=== PATIENT | female | born 1960 | race Caucasian/White ===

== ENCOUNTER 2017-12-29 23:12 | Emergency (ER) | payer OTHER ==
[~2017-12-29] VITALS: Ht 149.9 cm; Wt 65.3 kg
[~2017-12-29 23:12] MED LIST: METOPROLOL
[2017-12-29] MEDS ORDERED: NIFEdipine 10 MG CAP ONE (23:34)
[2017-12-29] MEDS ORDERED: NIFEdipine 10 MG CAP PO ONE (23:45)
[2017-12-30 00:11] LABS: Urine Bacteria NONE SEEN /hpf (None Seen); Urine Blood 1+ /uL (Negative); Urine Specific Gravity 1.011 (1.001-1.035); Urine WBC 3 /hpf (0 - 5)
[2017-12-30 00:23] LABS: Alcohol, Urine < 3.0 mg/dL (0-5); Amphetamine Screen, Urine NEGATIVE (NEGATIVE); Barbiturate Scree,Urine NEGATIVE (NEGATIVE); Benzodiazephine Screen, Urine NEGATIVE (NEGATIVE); Cannabinoid Screen, Urine NEGATIVE (NEGATIVE); Cocaine Screen, Urine NEGATIVE (NEGATIVE); Opiate Scree,Urine NEGATIVE (NEGATIVE); Phencyclidine Screen, Urine NEGATIVE (NEGATIVE)
[2017-12-30 00:27] LABS: Basophils # (auto) 0.1 uL; Basophils % (auto) 0.6 % (0.0-2.0); Eosinophils # (auto) 0.2 uL; Eosinophils % (auto) 1.4 % (0.0-7.0); Hematocrit 40.7 % (36.0-46.0); Hemoglobin 14.1 g/dL (12.2-16.2); Lymphocytes # (auto) 0.9 uL; Lymphocytes % (auto) 7.9 % (10.0-50.0); Mean Corpuscular Hemoglobin 31.9 pg (28.0-32.0); Mean Corpuscular Hgb Conc. 34.6 g/dL (32.0-36.0); Mean Corpuscular Volume 92.1 fL (80.0-100.0); Monocytes # (auto) 1.1 uL; Monocytes % (auto) 9.2 % (0.0-12.0); Neutrophils # (auto) 9.5 uL; Neutrophils % (auto) 80.9 % (37.0-80.0); Platelet Count (auto) 358 10^3/uL (140-450); Red Blood Cells 4.42 10^6/uL (4.0-5.20); Red Cell Distribution Width 12.9 % (11.8-14.3); White Blood Cell 11.8 10^3/uL (4.4-10.8)
[2017-12-30 00:47] LABS: Alanine Aminotransferase 61 U/L (13-56); Albumin 3.4 g/dL (3.4-5.0); Amylase 33 U/L (25-115); Anion Gap 9 (5-15); Aspartate Aminotransferase 111 U/L (15-37); BUN/Creatinine Ratio 13.8; Blood Urea Nitrogen 8 mg/dL (7-18); Calcium 8.8 mg/dL (8.5-10.1); Carbon Dioxide 27 mmol/L (21-32); Chloride 104 mmol/L (98-107); GFR African American 137 mL/min; GFR Non-African American 113 mL/min; Glucose 110 mg/dL (74-106); Lipase 191 U/L (73-393); Sodium 140 mmol/L (136-145)
[2017-12-30 00:52] LABS: Alkaline Phosphatase 102 U/L (45-117); Bilirubin, Total 0.4 mg/dL (0.2-1.0)
[2017-12-30 01:26] VITALS: BP 138/80
== END 2017-12-30 04:29 | disposition left against medical advice (07) ==
LOC: ER 23:21 → MERGE 23:21 → ER 12-30 04:29
DX: R10.9 Unspecified abdominal pain (principal); Z53.21 Procedure and treatment not carried out due to patient leaving prior to being seen by health care provider
CPT/HCPCS: 36415; 74176; 80053; 80307; 81001; 82150; 83690; 83880; 84484; 85025; 93005

== ENCOUNTER 2017-12-31 10:04 | Inpatient (IN) | payer OTHER ==
[~2017-12-31] VITALS: Ht 157.5 cm; Wt 78.6 kg
[2017-12-31 10:35] LABS: Basophils # (auto) 0.1 uL; Basophils % (auto) 1.1 % (0.0-2.0); Eosinophils # (auto) 0.1 uL; Eosinophils % (auto) 1.7 % (0.0-7.0); Hematocrit 42.3 % (36.0-46.0); Hemoglobin 14.2 g/dL (12.2-16.2); Lymphocytes # (auto) 0.9 uL; Lymphocytes % (auto) 12.4 % (10.0-50.0); Mean Corpuscular Hemoglobin 30.9 pg (28.0-32.0); Mean Corpuscular Hgb Conc. 33.6 g/dL (32.0-36.0); Mean Corpuscular Volume 91.9 fL (80.0-100.0); Monocytes # (auto) 0.7 uL; Monocytes % (auto) 9.9 % (0.0-12.0); Neutrophils # (auto) 5.3 uL; Neutrophils % (auto) 74.9 % (37.0-80.0); Nucleated Red Blood Cells % 0.1 %; Platelet Count (auto) 413 10^3/uL (140-450); Red Cell Distribution Width 12.7 % (11.8-14.3); White Blood Cell 7.1 10^3/uL (4.4-10.8)
[2017-12-31 11:09] LABS: Alanine Aminotransferase 107 U/L (13-56); Albumin 3.7 g/dL (3.4-5.0); Alkaline Phosphatase 112 U/L (45-117); Anion Gap 6 (5-15); Aspartate Aminotransferase 58 U/L (15-37); BUN/Creatinine Ratio 9.2; Bilirubin, Total 0.4 mg/dL (0.2-1.0); Blood Urea Nitrogen 6 mg/dL (7-18); Calcium 9.1 mg/dL (8.5-10.1); Carbon Dioxide 29 mmol/L (21-32); Chloride 106 mmol/L (98-107); GFR African American 120 mL/min; GFR Non-African American 99 mL/min; Glucose 85 mg/dL (74-106); Magnesium 2.7 mg/dL (1.6-2.6); Sodium 141 mmol/L (136-145); Total Protein 6.9 g/dL (6.4-8.2)
[2017-12-31 11:18] LABS: Urine Bacteria NONE SEEN /hpf (None Seen); Urine Blood TRACE /uL (Negative); Urine Specific Gravity 1.003 (1.001-1.035); Urine WBC 3 /hpf (0 - 5)
[2017-12-31] MEDS ORDERED: NITROGLYCERIN 0.4 MG SL TAB SL PRN (13:15)
[2017-12-31] MEDS ORDERED: PANTOPRAZOLE 40 MG/10 ML VIAL IV ONE (13:15)
[2017-12-31] MEDS ORDERED: cefTRIAXone 1GM/10ml IVPUSH 10 ML IV ONE (13:15)
[2017-12-31] MEDS ORDERED: MORPHINE SULFATE 8mg/ml INJ SDV IV PRN ×2 (13:15)
[2017-12-31 13:27] LABS: Amylase 34 U/L (25-115); Lipase 164 U/L (73-393)
[2017-12-31] MEDS: SODIUM CHLORIDE 0.9% 1,000 ML IV SCH ×2 (13:48→23:11)
[2017-12-31 17:00] VITALS: BP 160/95
[2017-12-31] MEDS: metroNIDAZOLE 500MG/100ML 100 ML IV SCH (18:33)
[2017-12-31 20:00] VITALS: BP 148/90
[2017-12-31] MEDS: MORPHINE SULFATE 8mg/ml INJ SDV IV PRN (21:37)
[2017-12-31 22:00] VITALS: BP 148/90
[2018-01-01 05:00] VITALS: BP 151/85
[2018-01-01] MEDS: metroNIDAZOLE 500MG/100ML 100 ML IV SCH ×5 (05:45→23:35)
[2018-01-01 06:25] LABS: Basophils # (auto) 0.1 uL; Basophils % (auto) 1.2 % (0.0-2.0); Eosinophils # (auto) 0.2 uL; Eosinophils % (auto) 3.5 % (0.0-7.0); Lymphocytes # (auto) 1.1 uL; Lymphocytes % (auto) 21.1 % (10.0-50.0); Mean Corpuscular Hemoglobin 31.5 pg (28.0-32.0); Mean Corpuscular Hgb Conc. 34.2 g/dL (32.0-36.0); Mean Corpuscular Volume 92.1 fL (80.0-100.0); Monocytes # (auto) 0.5 uL; Monocytes % (auto) 9.5 % (0.0-12.0); Neutrophils # (auto) 3.3 uL; Neutrophils % (auto) 64.7 % (37.0-80.0); Platelet Count (auto) 369 10^3/uL (140-450); Red Blood Cells 4.13 10^6/uL (4.0-5.20); Red Cell Distribution Width 12.5 % (11.8-14.3)
[2018-01-01 06:33] LABS: Potassium 3.8 mmol/L (3.5-5.1)
[2018-01-01 06:39] LABS: BUN/Creatinine Ratio 13.6; Calcium 8.5 mg/dL (8.5-10.1)
[2018-01-01 06:41] LABS: Bilirubin, Total 0.4 mg/dL (0.2-1.0)
[2018-01-01 08:29] VITALS: BP 143/83
[2018-01-01] MEDS: SODIUM CHLORIDE 0.9% 1,000 ML IV SCH (09:03)
[2018-01-01] MEDS: PANTOPRAZOLE 40 MG/10 ML VIAL IV SCH (09:30)
[2018-01-01] MEDS: cefTRIAXone 1GM/10ml IVPUSH 10 ML IV SCH (09:30)
[2018-01-01 12:30] VITALS: BP 156/89
[2018-01-01 16:57] VITALS: BP 164/105
[2018-01-01 22:00] VITALS: BP 163/85
[2018-01-01 22:05] VITALS: BP 152/90
[2018-01-02] MEDS: SODIUM CHLORIDE 0.9% 1,000 ML IV SCH ×3 (02:22→15:03)
[2018-01-02 05:00] VITALS: BP 151/96
[2018-01-02] MEDS: metroNIDAZOLE 500MG/100ML 100 ML IV SCH ×4 (05:39→23:34)
[2018-01-02] MEDS: METOPROLOL TARTRATE 50 MG TAB PO SCH (06:24)
[2018-01-02 09:00] VITALS: BP 144/90
[2018-01-02] MEDS: cefTRIAXone 1GM/10ml IVPUSH 10 ML IV SCH (10:42)
[2018-01-02] MEDS: PANTOPRAZOLE 40 MG/10 ML VIAL IV SCH (10:42)
[2018-01-02] MEDS ORDERED: METO-158 PO (12:41)
[2018-01-02] MEDS ORDERED: LISI-646 PO (12:41)
[2018-01-02 13:00] VITALS: BP 153/82
[2018-01-02 17:57] VITALS: BP 154/92
[2018-01-02] MEDS: MORPHINE SULFATE 8mg/ml INJ SDV IV PRN (18:38)
[2018-01-02 22:00] VITALS: BP 156/100
[2018-01-02] MEDS ORDERED: LISINOPRIL 20 MG TAB PO SCH (22:00)
[2018-01-03] MEDS: SODIUM CHLORIDE 0.9% 1,000 ML IV SCH ×3 (03:23→21:03)
[2018-01-03 05:00] VITALS: BP 132/73
[2018-01-03] MEDS: metroNIDAZOLE 500MG/100ML 100 ML IV SCH ×4 (05:32→23:51)
[2018-01-03 09:00] VITALS: BP 156/79
[2018-01-03] MEDS: cefTRIAXone 1GM/10ml IVPUSH 10 ML IV SCH (10:14)
[2018-01-03] MEDS: PANTOPRAZOLE 40 MG/10 ML VIAL IV SCH (10:14)
[2018-01-03] MEDS: METOPROLOL TARTRATE 50 MG TAB PO SCH (10:15)
[2018-01-03] MEDS: MORPHINE SULFATE 8mg/ml INJ SDV IV PRN (12:37)
[2018-01-03 13:00] VITALS: BP 130/74
[2018-01-03 17:00] VITALS: BP 134/90
[2018-01-03] MEDS: LISINOPRIL 20 MG TAB PO SCH (22:00)
[2018-01-03 22:02] VITALS: BP 147/77
[2018-01-04] VITALS (7 sets, daily range): BP systolic 124–171; BP diastolic 55–104
[2018-01-04] MEDS: metroNIDAZOLE 500MG/100ML 100 ML IV SCH ×4 (05:42→23:47)
[2018-01-04] MEDS: SODIUM CHLORIDE 0.9% 1,000 ML IV SCH ×3 (05:55→22:01)
[2018-01-04 06:41] LABS: Albumin 3.3 g/dL (3.4-5.0); BUN/Creatinine Ratio 15.4; Bilirubin, Total 0.4 mg/dL (0.2-1.0); Calcium 8.4 mg/dL (8.5-10.1); Potassium 3.7 mmol/L (3.5-5.1); Total Protein 6.3 g/dL (6.4-8.2)
[2018-01-04] MEDS: METOPROLOL TARTRATE 50 MG TAB PO SCH (09:11)
[2018-01-04] MEDS: cefTRIAXone 1GM/10ml IVPUSH 10 ML IV SCH (09:11)
[2018-01-04] MEDS: PANTOPRAZOLE 40 MG/10 ML VIAL IV SCH (09:11)
[2018-01-04] MEDS: MORPHINE SULFATE 8mg/ml INJ SDV IV PRN (10:29)
[2018-01-04 11:10] LABS: INR 1.1 (0.9-1.15); Prothrombin Time 11.7 sec (9.27-12.13)
[2018-01-04 12:01] LABS: Urine Bacteria NONE SEEN /hpf (None Seen); Urine Blood 1+ /uL (Negative); Urine Specific Gravity 1.021 (1.001-1.035); Urine WBC 9 /hpf (0 - 5)
[2018-01-04] MEDS ORDERED: hydrALAZINE HCL 20 MG/ML VL IV PRN ×2 (12:30→16:30)
[2018-01-04] MEDS ORDERED: IOHEXOL 300 MG/ML 100ML BOTTLE IJ ONE (15:16)
[2018-01-04] MEDS ORDERED: SUCCINYLCHOLINE CHLORIDE 20 MG/ML 10ML VIAL IV ONE (15:37)
[2018-01-04] MEDS ORDERED: PROPOFOL 10 MG/ML 20 ML IV ONE (15:46)
[2018-01-04] MEDS ORDERED: MIDAZOLAM HCL 1MG/1ML-2 ML VIAL ONE (15:46)
[2018-01-04] MEDS ORDERED: fentaNYL CITRATE 100 MCG/2 ML VL ONE ×2 (15:46→16:15)
[2018-01-04] MEDS ORDERED: ePHEDrine SULFATE 50 MG/ML AMP IV PRN (16:30)
[2018-01-04] MEDS ORDERED: ONDANSETRON HCL 4 MG/2 ML VIAL IV ONE (16:30)
[2018-01-04] MEDS ORDERED: fentaNYL CITRATE 100 MCG/2 ML VL IV ONE (17:00)
[2018-01-04] MEDS ORDERED: ONDANSETRON HCL 4 MG/2 ML VIAL IV PRN (17:45)
[2018-01-04] MEDS: LISINOPRIL 20 MG TAB PO SCH (21:55)
[2018-01-05 04:00] VITALS: BP 125/78
[2018-01-05] MEDS: metroNIDAZOLE 500MG/100ML 100 ML IV SCH ×4 (06:05→23:53)
[2018-01-05 06:55] LABS: Basophils # (auto) 0.1 uL; Basophils % (auto) 0.5 % (0.0-2.0); Eosinophils # (auto) 0.1 uL; Eosinophils % (auto) 0.5 % (0.0-7.0); Hematocrit 40.1 % (36.0-46.0); Hemoglobin 13.6 g/dL (12.2-16.2); Lymphocytes # (auto) 0.8 uL; Mean Corpuscular Hemoglobin 31.5 pg (28.0-32.0); Mean Corpuscular Hgb Conc. 33.9 g/dL (32.0-36.0); Mean Corpuscular Volume 92.8 fL (80.0-100.0); Monocytes # (auto) 0.8 uL; Monocytes % (auto) 8.3 % (0.0-12.0); Neutrophils # (auto) 8.4 uL; Neutrophils % (auto) 82.7 % (37.0-80.0); Platelet Count (auto) 409 10^3/uL (140-450); Red Blood Cells 4.32 10^6/uL (4.0-5.20); Red Cell Distribution Width 12.9 % (11.8-14.3); White Blood Cell 10.2 10^3/uL (4.4-10.8)
[2018-01-05 07:18] LABS: Bilirubin, Total 0.4 mg/dL (0.2-1.0)
[2018-01-05 09:00] VITALS: BP 151/93
[2018-01-05] MEDS: cefTRIAXone 1GM/10ml IVPUSH 10 ML IV SCH (09:19)
[2018-01-05] MEDS: METOPROLOL TARTRATE 50 MG TAB PO SCH (09:19)
[2018-01-05] MEDS: PANTOPRAZOLE 40 MG/10 ML VIAL IV SCH (10:00)
[2018-01-05] MEDS: cloNIDine HCL 0.1 MG TAB PO PRN (11:27)
[2018-01-05] MEDS: SODIUM CHLORIDE 0.9% 1,000 ML IV SCH ×2 (13:03→23:03)
[2018-01-05] MEDS ORDERED: MIDAZOLAM HCL 1MG/1ML-2 ML VIAL ONE (13:44)
[2018-01-05 13:58] VITALS: BP 143/81
[2018-01-05] MEDS ORDERED: GLYCOPYRROLATE 0.2 MG/ML 1ML VIAL ONE ×2 (13:59→15:25)
[2018-01-05] MEDS ORDERED: NEOSTIGMINE 1 MG/ML INJ (10mg/10ML VIAL) ONE ×2 (13:59→15:25)
[2018-01-05] MEDS ORDERED: ceFAZolin 1GM/100ML 100 ML IV ONE (14:01)
[2018-01-05] MEDS ORDERED: SUCCINYLCHOLINE CHLORIDE 20 MG/ML 10ML VIAL IV ONE (14:25)
[2018-01-05] MEDS ORDERED: PROPOFOL 10 MG/ML 20 ML IV ONE (14:33)
[2018-01-05] MEDS ORDERED: ROCURONIUM 10MG/ML 10ML VIAL IV ONE (14:33)
[2018-01-05] MEDS ORDERED: fentaNYL CITRATE 100 MCG/2 ML VL ONE (14:40)
[2018-01-05] MEDS ORDERED: KETOROLAC TROMETH 30 MG/ML 1ML VIAL ONE (14:51)
[2018-01-05] MEDS ORDERED: ESMOLOL HCL 10 ML IV ONE (15:29)
[2018-01-05] MEDS ORDERED: NITROGLYCERIN 50MG/250ML 250 ML IV ONE (15:52)
[2018-01-05] MEDS: MORPHINE SULFATE 8mg/ml INJ SDV IV PRN ×4 (15:54→16:39)
[2018-01-05] MEDS ORDERED: NALOXONE HCL 0.4 MG/ML VIAL IV PRN (16:15)
[2018-01-05] MEDS ORDERED: ONDANSETRON HCL 4 MG/2 ML VIAL IV ONE (16:15)
[2018-01-05] MEDS ORDERED: MORPHINE SULFATE 10 MG/ML INJ 1ML SDV IV PRN ×3 (17:00)
[2018-01-05 18:14] VITALS: BP 142/86
[2018-01-05 20:00] VITALS: BP 136/72
[2018-01-05] MEDS: LISINOPRIL 20 MG TAB PO SCH (21:35)
[2018-01-05 22:00] VITALS: BP 134/72
[2018-01-06] MEDS: MORPHINE SULFATE 10 MG/ML INJ 1ML SDV IV PRN ×3 (01:25→13:30)
[2018-01-06 05:05] VITALS: BP 155/92
[2018-01-06] MEDS: metroNIDAZOLE 500MG/100ML 100 ML IV SCH ×2 (05:39→14:37)
[2018-01-06 07:04] LABS: Basophils # (auto) 0.1 uL; Basophils % (auto) 0.9 % (0.0-2.0); Eosinophils # (auto) 0.1 uL; Eosinophils % (auto) 0.9 % (0.0-7.0); Hematocrit 35.9 % (36.0-46.0); Hemoglobin 12.2 g/dL (12.2-16.2); Lymphocytes # (auto) 0.9 uL; Lymphocytes % (auto) 15.6 % (10.0-50.0); Mean Corpuscular Hemoglobin 31.3 pg (28.0-32.0); Mean Corpuscular Hgb Conc. 33.8 g/dL (32.0-36.0); Mean Corpuscular Volume 92.4 fL (80.0-100.0); Monocytes # (auto) 0.7 uL; Monocytes % (auto) 11.4 % (0.0-12.0); Neutrophils # (auto) 4.3 uL; Neutrophils % (auto) 71.2 % (37.0-80.0); Nucleated Red Blood Cells % 0.1 %; Platelet Count (auto) 320 10^3/uL (140-450); Red Blood Cells 3.89 10^6/uL (4.0-5.20); Red Cell Distribution Width 12.6 % (11.8-14.3)
[2018-01-06 07:26] LABS: Potassium 3.2 mmol/L (3.5-5.1)
[2018-01-06 07:40] LABS: Albumin 2.7 g/dL (3.4-5.0); BUN/Creatinine Ratio 9.1; Magnesium 1.8 mg/dL (1.6-2.6)
[2018-01-06 07:42] LABS: Bilirubin, Total 0.5 mg/dL (0.2-1.0); Total Protein 5.5 g/dL (6.4-8.2)
[2018-01-06 09:00] VITALS: BP 138/81
[2018-01-06] MEDS: cefTRIAXone 1GM/10ml IVPUSH 10 ML IV SCH (10:52)
[2018-01-06] MEDS: PANTOPRAZOLE 40 MG/10 ML VIAL IV SCH (10:52)
[2018-01-06] MEDS: SODIUM CHLORIDE 0.9% 1,000 ML IV SCH ×2 (10:52→19:03)
[2018-01-06] MEDS: METOPROLOL TARTRATE 50 MG TAB PO SCH (10:53)
[2018-01-06] MEDS ORDERED: POTASSIUM CHL 20 Meq TABLET PO ONE (11:30)
[2018-01-06 13:00] VITALS: BP 163/94
[2018-01-06 17:00] VITALS: BP 184/101
[2018-01-06] MEDS: cloNIDine HCL 0.1 MG TAB PO PRN (17:22)
[2018-01-06 20:00] VITALS: BP 144/89
[2018-01-06 22:00] VITALS: BP 156/93
[2018-01-07] MEDS: metroNIDAZOLE 500MG/100ML 100 ML IV SCH ×4 (00:06→12:43)
[2018-01-07] MEDS: LISINOPRIL 20 MG TAB PO SCH (00:13)
[2018-01-07 05:00] VITALS: BP 164/100
[2018-01-07] MEDS: SODIUM CHLORIDE 0.9% 1,000 ML IV SCH (05:03)
[2018-01-07] MEDS: cloNIDine HCL 0.1 MG TAB PO PRN (05:17)
[2018-01-07] MEDS: MORPHINE SULFATE 10 MG/ML INJ 1ML SDV IV PRN ×2 (08:00→12:20)
[2018-01-07] MEDS: PANTOPRAZOLE 40 MG/10 ML VIAL IV SCH (09:45)
[2018-01-07] MEDS: cefTRIAXone 1GM/10ml IVPUSH 10 ML IV SCH (09:45)
[2018-01-07] MEDS: METOPROLOL TARTRATE 50 MG TAB PO SCH (09:45)
[2018-01-07] MEDS ORDERED: POTASSIUM CHL 20 Meq TABLET PO ONE (11:30)
[2018-01-07] MEDS ORDERED: HYDROcodone-ACET 10/325MG TAB PO ONE (11:45)
[2018-01-07 12:16] VITALS: BP 152/89
[2018-01-07 12:21] VITALS: BP 157/100
== END 2018-01-07 13:30 | disposition home or self-care (01) | DRG 419 ==
LOC: ER 10:04 → TELE 10:05 → MERGE 10:05 → TELE-EAST 14:15
PROVIDERS: ADMIT Internal Medicine; ATTEND Internal Medicine Pulmonary Disease
PROC: 0FC98ZZ Extirpation of Matter from Common Bile Duct, Via Natural or Artificial Opening Endoscopic (ICD-10-PCS; 2018-01-04)
PROC: BF101ZZ Fluoroscopy of Bile Ducts using Low Osmolar Contrast (ICD-10-PCS; 2018-01-04)
PROC: 0F798ZZ Dilation of Common Bile Duct, Via Natural or Artificial Opening Endoscopic (ICD-10-PCS; principal; 2018-01-04 15:48)
PROC: 0FT44ZZ Resection of Gallbladder, Percutaneous Endoscopic Approach (ICD-10-PCS; 2018-01-05)
DX: K80.62 Calculus of gallbladder and bile duct with acute cholecystitis without obstruction (principal); E66.9 Obesity, unspecified; E87.6 Hypokalemia; I10 Essential (primary) hypertension; K57.90 Diverticulosis of intestine, part unspecified, without perforation or abscess without bleeding; F17.210 Nicotine dependence, cigarettes, uncomplicated; K29.70 Gastritis, unspecified, without bleeding; Z80.0 Family history of malignant neoplasm of digestive organs; Z80.1 Family history of malignant neoplasm of trachea, bronchus and lung; Z68.31 Body mass index [BMI] 31.0-31.9, adult
CPT/HCPCS: 36415; 71045; 74018; 74181; 76000; 76705; 78226; 80053; 81001; 81025; 82150; 82247; 83690; 83735; 84132; 84484; 85025; 85610; 86850; 86900; 86901; 87081; 93005; 96374; 96375; 96376; C9113; J0330; J0690; J1885; J2250; J2270; J2704; J3490